=== PATIENT | female | born 1985 | race Hispanic/Latino ===

== ENCOUNTER 2024-05-07 22:31 | Emergency (ER) | payer SELFPAY ==
[~2024-05-07] VITALS: Ht 154.9 cm; Wt 78.0 kg
[2024-05-07] MEDS: acetaMINOPHEN 500 MG TABLET PO ONE (23:12)
[2024-05-07] MEDS: DIPH,PERTUSS(ACELL),TET VAC/PF 0.5 ML VIAL IM ONE (23:12)
[2024-05-07 23:45] VITALS: TEMP 98.1
[2024-05-08 02:11] VITALS: BP 136/72; PULSE 65; RESP 15; O2SAT 99
[2024-05-08] MEDS: NEOMY SULF/BACITRA/POLYMYXIN B 1 EACH PACKET TP ONE (02:40)
== END 2024-05-08 02:11 | disposition home or self-care (01) ==
LOC: EDH 22:31
DX: S01.01XA Laceration without foreign body of scalp, initial encounter (principal); Z98.890 Other specified postprocedural states; W01.0XXA Fall on same level from slipping, tripping and stumbling without subsequent striking against object, initial encounter; Y93.89 Activity, other specified; Y92.89 Other specified places as the place of occurrence of the external cause; Y99.8 Other external cause status
CPT/HCPCS: 12001; 70450; 90471; 90715